=== PATIENT | female | born 2000 | race Caucasian/White ===

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

== ENCOUNTER 2018-08-07 07:35 | Inpatient (IN) ==
[2018-08-07] MEDS ORDERED: LACTATED RINGER'S 1,000 ML IV PRN (08:15)
[2018-08-07] MEDS ORDERED: OXYTOCIN 30 UNITS/500 ML BAG IV PRN (08:15)
[2018-08-07 08:41] LABS: Hematocrit (blood only) 33.7 % (37-47); Hemoglobin 11.1 g/dL (12.0-16.0); Mean Corpuscular Hgb Conc 32.9 g/dL (32-36); Mean Corpuscular Volume 90.1 fL (80-100); Mean Platelet Volume 9.9 fL (7.4-10.4); Platelet Count 251 K/uL (130-400); RDW Coefficient of Variation 16.4 % (11.5-14.5); RDW Standard Deviation 53.7 fL (36.4-46.3); Red Blood Count 3.74 M/uL (4.2-5.4); White Blood Count 12.37 K/uL (4.8-10.8)
[2018-08-07] MEDS ORDERED: DINOPROSTONE 10 MG INSERT PV ONE ×2 (08:48→21:50)
--- NOTE | 2018-08-07 09:02 | Obstetrical Progress Note ---
Date of Service August 07, 2018 Subjective Admit Note 18 F P1001 at 36.1 weeks admitted for induction of labor at 36.1 weeks for cholestasis of . had steroids for lung maturation. GBS is pending from office. FHT Cat 1. Cervix is fingertip/thick/- 3/vertex/posterior/intact. EFW is 6.5 lbs. Will plan for Cervidil for cervical ripening. Physical Exam Vital Signs (Past 24 Hours): Last Vital Signs Temp 36.6 C 08/07/18 07:45 Pulse 108 H 08/07/18 07:45 Resp 18 08/07/18 07:45 BP 118/65 08/07/18 07:45
[2018-08-07 09:14] LABS: Alanine Aminotransferase 71 U/L (12-78); Albumin Level 2.5 gm/dl (3.4-5.0); Aspartate Aminotransferase 37 U/L (15-37); BUN Creatinine Ratio 11.1 (10-20); Bilirubin Direct < 0.1 mg/dl (0-0.2); Blood Urea Nitrogen 7 mg/dl (7-18); Calcium 8.3 mg/dl (8.5-10.1); Carbon Dioxide 26 mmol/L (21-32); Chloride 108 mmol/L (98-107); Creatinine Clr Calc Pharmacy 160.4 ml/min; Est GFR (African American) 148.9; Est GFR (Non-African American) 128.5; Glucose 91 mg/dl (70-99); Potassium 3.7 mmol/L (3.5-5.1); Sodium 141 mmol/L (136-145)
[2018-08-07 09:16] LABS: Albumin Globulin Ratio 0.7 (0.9-2); Alkaline Phosphatase 123 U/L (45-117); Bilirubin,Total 0.2 mg/dl (0.2-1); Globulin 3.5 gm/dl (2.5-4.0)
--- NOTE | 2018-08-07 09:38 | Obstetrical Progress Note ---
Date of Service August 07, 2018 Physical Exam Vital Signs (Past 24 Hours): Last Vital Signs Temp 36.6 C 08/07/18 07:45 Pulse 108 H 08/07/18 07:45 Resp 18 08/07/18 07:45 BP 118/65 08/07/18 07:45 Physical Exam: Cervidil 10 mg placed vaginally. T Cat 1.
[2018-08-07] MEDS: ONDANSETRON INJ 2 MG/ML 2 ML VIAL IV PRN (19:47)
--- NOTE | 2018-08-07 21:57 | Obstetrical Progress Note ---
Date of Service August 07, 2018 Physical Exam Vital Signs (Past 24 Hours): Last Vital Signs Temp 36.7 C 08/07/18 19:29 Pulse 89 08/07/18 19:31 Resp 18 08/07/18 19:29 BP 132/67 08/07/18 19:31 Physical Exam: Cervidil removed Cervix /-3 FHT Cat 1 Will allow to eat and shower Plan for Cervidil
--- NOTE | 2018-08-07 23:50 | Obstetrical Progress Note ---
Date of Service August 07, 2018 Physical Exam Vital Signs (Past 24 Hours): Last Vital Signs Temp 36.7 C 08/07/18 22:39 Pulse 88 08/07/18 22:40 Resp 20 08/07/18 22:39 BP 115/53 L 08/07/18 22:40 Physical Exam: Cervidil 10 mg placed vaginally. T Cat 1.
[2018-08-08] MEDS: ONDANSETRON INJ 2 MG/ML 2 ML VIAL IV PRN ×3 (04:30→17:07)
[2018-08-08] MEDS: LACTATED RINGER'S 1,000 ML IV SCH ×2 (04:33→12:40)
[2018-08-08] MEDS: BUTORPHANOL TARTRATE 1 MG/ML VIAL IV PRN ×2 (04:43→07:42)
--- NOTE | 2018-08-08 09:11 | Progress Note ---
Date of Service August 08, 2018 Pt doing well Met Pt and family Induction for cholestasis Day 32 Cervidil #[address] Cervidil comes out at 11:00HRS Physical Exam Vital Signs (Past 24 Hours): Last Vital Signs Temp 36.8 C 08/08/18 07:08 Pulse 106 H 08/08/18 07:08 Resp 18 08/08/18 07:08 BP 119/67 08/08/18 07:08 Pulse Ox 94 08/08/18 05:44
[2018-08-08] MEDS ORDERED: BUPIVACAINE 0.25% 30 ML VIAL ONE (12:11)
[2018-08-08] MEDS ORDERED: ePHEDrine sulfate 50 MG/ML AMP ONE (12:12)
[2018-08-08] MEDS ORDERED: fentaNYL citrate 100 MCG/2 ML VIAL ONE (12:12)
[2018-08-08] MEDS ORDERED: fentaNYL 2MCG/ML ROPIV 1.25MG/ML 100 ML BAG EPI ONE (12:13)
[2018-08-08] MEDS ORDERED: OXYTOCIN 30 UNITS/500 ML BAG IV PRN ×2 (12:15→16:16)
[2018-08-08] MEDS ORDERED: LACTATED RINGER'S 1,000 ML IV PRN ×2 (12:15→13:05)
--- NOTE | 2018-08-08 12:15 | Progress Note ---
Date of Service August 08, 2018 Doing well FHR; CAT1 Ctx; 2-4mins VE; /-3 pt wishes to have epidural analgesia will start Pitocin after epidural Physical Exam Vital Signs (Past 24 Hours): Last Vital Signs Temp 36.8 C 08/08/18 11:51 Pulse 104 H 08/08/18 11:51 Resp 16 08/08/18 11:51 BP 112/79 08/08/18 11:51 Pulse Ox 94 08/08/18 05:44
[2018-08-08] MEDS ORDERED: ONDANSETRON INJ 2 MG/ML 2 ML VIAL IV PRN (13:05)
[2018-08-08] MEDS ORDERED: ePHEDrine sulfate 50 MG/ML AMP IV PRN (13:05)
[2018-08-08] MEDS ORDERED: PROMETHAZINE HCL 6.25 MG in SODIUM CHLORIDE 0.9% 50 ML IV PRN (13:05)
[2018-08-08] MEDS ORDERED: NALOXONE HCL 0.4 MG/1 ML VIAL/CARP IV PRN (13:05)
[2018-08-08] MEDS ORDERED: DiphenhydrAMINE HCL 50 MG/ML VIAL IV PRN (13:05)
[2018-08-08] MEDS ORDERED: NALOXONE HCL 1 MG in SODIUM CHLORIDE 0.9% 1000ML 1,000 ML IV PRN (13:05)
[2018-08-08] MEDS ORDERED: fentaNYL 2MCG/ML ROPIV 1.25MG/ML 100 ML BAG EPI PRN (13:05)
[2018-08-08] MEDS ORDERED: NALBUPHINE HCL INJ 10 MG/ML AMP IV PRN (13:05)
--- NOTE | 2018-08-08 13:05 | Anesthesiology Consultation ---
Date of Service August 08, 2018 @ 36.1 Cholestasis of Assessment & Plan (1) Encounter for pre-operative examination: Chart Review Chart Review: Acceptable Risk for Surgery and Patient NOT seen in Pre Admission Testing Consults Requested none ASA ASA2 Proposed Anesthesia Anesthesia Type: Labor Epidural Risk / Benefits Reviewed With: PT / POA / Parent / Guardian, Accepts Plan and Informed Consent Obtained NPO Date Last Intake of Fluids: 08/08/18 Time Last Intake of Fluids: 08:00 Date Last Intake of Solids: 08/07/18 Time Last Intake of Solids: 20:00 History Height/Weight Height: 5 ft 5 in Weight: 95.708 kg Allergies Allergy/AdvReac Type Severity Reaction Status Date / Time No Known Allergies Allergy Verified 08/07/18 07:49 Medications Home Medications Medication Instructions Recorded Confirmed Last Taken Lactobacillus acidophilus 1 cap PO DAILY 07/23/18 08/07/18 08/06/18 06:00 [Probiotic] diphenhydramine HCl [Benadryl] 50 mg PO HS PRN 07/23/18 08/07/18 08/06/18 15:00 ferrous sulfate [Iron (ferrous 325 mg PO DAILY 07/23/18 08/07/18 08/06/18 06:00 sulfate)] pantoprazole [Protonix] 40 mg PO DAILY 07/23/18 08/07/18 08/06/18 06:00 vit-iron fum-folic ac 1 tab PO DAILY 07/23/18 08/07/18 08/07/18 06:00 [ Vitamin] ursodiol [Actigall] 300 mg PO BID 07/23/18 08/07/18 08/07/18 06:00 ondansetron HCl [Zofran] 4 mg PO QID PRN 08/07/18 08/07/18 08/07/18 06:00 Active Medications Generic Name Dose Route Start Last Admin Trade Name Freq PRN Reason Stop Dose Admin Butorphanol Tartrate 1 mg 08/07/18 23:50 08/08/18 07:42 Stadol IV 09/06/18 23:49 1 mg Q2HWA PRN Administration Pain Lactated Ringer's 1,000 mls @ 125 mls/hr 08/07/18 08:15 08/08/18 12:40 Lr IV 08/09/18 08:14 125 mls/hr .Q8H JULIO Administration Ondansetron HCl 4 mg 08/07/18 19:40 08/08/18 08:29 Zofran IV 09/06/18 19:39 4 mg Q4H PRN Administration Nausea Past Medical History Medical History 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
[2018-08-08] MEDS ORDERED: METHYLERGONOVINE MALEATE 0.2 MG/ML AMP ONE (16:04)
[2018-08-08] MEDS ORDERED: METHYLERGONOVINE MALEATE 0.2 MG/ML AMP IM ONE (16:16)
[2018-08-08] MEDS ORDERED: miSOPROStol 200 MCG TAB PR ONE (16:16)
[2018-08-08] MEDS ORDERED: HYDROCORTISONE ACETATE 25 MG SUPP PR PRN (16:16)
[2018-08-08] MEDS ORDERED: SUPERCREAM 0.870% 15 GM JAR EXT PRN (16:16)
[2018-08-08] MEDS ORDERED: ACETAMINOPHEN 325 MG TAB PO PRN (16:16)
[2018-08-08] MEDS ORDERED: DIPHTHERIA/TETANUS/PERTUSSIS 0.5 ML SYR/VIAL IM ONE (16:16)
[2018-08-08] MEDS ORDERED: BENZOCAINE 20% AER SPR 82.5 GM CAN EXT PRN (16:16)
[2018-08-08] MEDS ORDERED: BISACODYL 10 MG SUPP PR PRN (16:16)
--- NOTE | 2018-08-08 17:43 | Anesthesia Procedure Note ---
Date of Service August 08, 2018 Anesthesia Post Epidural Note Vital Signs Vital Signs: Temp Pulse Resp BP Pulse Ox 36.8 C 86 20 134/77 100 08/08/18 11:51 08/08/18 17:35 08/08/18 15:00 08/08/18 17:35 08/08/18 15:52 Pain Intensity Bilateral Abdomen: Pain Intensity: 0 Notes Mental Status: alert / awake / arousable and participated in evaluation Nausea / Vomiting: adequately controlled Pain: adequately controlled Airway Patency, RR, SpO2: stable & adequate BP & HR: stable & adequate Hydration State: stable & adequate Neuraxial Anesthesia: was administered and sensory block is resolving Anesthetic Complications: no major complications apparent and Pt Satisfied with anesthetic care Epidural: Removed without complications and With tip intact
[2018-08-08] MEDS: IBUPROFEN 600 MG TAB PO PRN ×2 (20:13→23:49)
[2018-08-08] MEDS: DOCUSATE SODIUM 100 MG CAP PO SCH (20:14)
[2018-08-08] MEDS ORDERED: OXYTOCIN 20 UNITS in LACTATED RINGER'S 1,000 ML IV SCH (20:45)
[2018-08-08] MEDS ORDERED: miSOPROStol 200 MCG TAB PR SCH (21:30)
[2018-08-09] MEDS: IBUPROFEN 600 MG TAB PO PRN ×5 (05:21→21:20)
[2018-08-09 06:35] LABS: Hematocrit (blood only) 38.8 % (37-47); Hemoglobin 12.9 g/dL (12.0-16.0); Mean Corpuscular Hgb Conc 33.2 g/dL (32-36); Mean Corpuscular Volume 88.8 fL (80-100); Mean Platelet Volume 10.1 fL (7.4-10.4); Platelet Count 268 K/uL (130-400); RDW Coefficient of Variation 15.9 % (11.5-14.5); RDW Standard Deviation 51.8 fL (36.4-46.3); Red Blood Count 4.37 M/uL (4.2-5.4); White Blood Count 13.68 K/uL (4.8-10.8)
--- NOTE | 2018-08-09 08:38 | Obstetrical Progress Note ---
Date of Service August 09, 2018 Assessment & Plan (1) normal course: PPD #1 pt doing well no complaints anticipate disch tomorrow Subjective Ambulation: ambulating normally Voiding: no voiding problems Passing Gas:: Yes Diet Tolerance:: regular diet Lochia:: Small Feeding Type:: breast feeding Review of Systems All systems reviewed & are unremarkable except as noted in HPI & below Physical Exam Vital Signs (Past 24 Hours) Last Vital Signs Temp 36.5 C 08/09/18 03:50 Pulse 56 L 08/09/18 03:50 Resp 18 08/09/18 03:50 BP 107/70 08/09/18 03:50 Pulse Ox 100 08/08/18 15:52 Constitutional WD/WN, vitals as above well developed and well nourished Eyes PERRL, conjunctivae normal, anicteric sclerae Neck trachea midline, no thyromegaly Respiratory normal respiratory effort, lungs clear to auscultation Auscultation: no crackles, no rales and no wheezes Cardiovascular RRR, no murmur, no edema Gastrointestinal (Abdomen) normal bowel sounds, soft, nontender, no hepatosplenomegaly Uterus is below umbilicus Musculoskeletal no cyanosis or clubbing, extremities motor strength 5/5 Skin no rashes, warm and dry Neurologic patellar DTR's 2+ bilat, sensation intact Psychiatric A+Ox3, euthymic affect Genitourinary normal external appearance
[2018-08-09] MEDS: DOCUSATE SODIUM 100 MG CAP PO SCH ×2 (09:02→20:00)
[2018-08-09] MEDS: PRENATAL VITAMIN 1 TAB PO SCH (09:02)
[2018-08-09] MEDS: FERROUS SULFATE 325 MG TAB PO SCH (09:02)
[2018-08-09] MEDS: OXYCODONE/ACETAMINOPHEN 5mg/325mg TAB PO PRN ×2 (12:59→21:20)
[2018-08-09] MEDS ORDERED: BISACODYL 5 MG TABEC PO SCH (20:00)
[2018-08-10 06:35] LABS: Hematocrit (blood only) 37.1 % (37-47); Hemoglobin 12.1 g/dL (12.0-16.0)
[2018-08-10] MEDS: DOCUSATE SODIUM 100 MG CAP PO SCH (08:11)
[2018-08-10] MEDS: IBUPROFEN 600 MG TAB PO PRN (08:11)
[2018-08-10] MEDS: FERROUS SULFATE 325 MG TAB PO SCH (08:11)
[2018-08-10] MEDS: PRENATAL VITAMIN 1 TAB PO SCH (08:11)
--- NOTE | 2018-08-10 10:58 | Obstetrical Progress Note ---
Date of Service August 10, 2018 Subjective doing fine ambulating and tana diet well Physical Exam Vital Signs (Past 24 Hours): Last Vital Signs Temp 36.8 C 08/10/18 10:22 Pulse 85 08/10/18 10:22 Resp 18 08/10/18 10:22 BP 99/67 L 08/10/18 10:22 Pulse Ox 97 08/10/18 10:22 Constitutional: well developed and comfortable abdomen soft fundus firm no edema neg Davin's for d/c home Results & Data Laboratory Results 08/07/18 08/07/18 08/09/18 08:27 08:27 06:00 WBC 12.37 H 13.68 H RBC 3.74 L 4.37 Hgb 11.1 L 12.9 Hct 33.7 L 38.8 MCV 90.1 88.8 MCH 29.7 29.5 MCHC 32.9 33.2 RDW Std Deviation 53.7 H 51.8 H RDW Coeff of Kory 16.4 H 15.9 H Plt Count 251 268 MPV 9.9 10.1 Sodium 141 Potassium 3.7 Chloride 108 H Carbon Dioxide 26 Anion Gap 7.0 BUN 7 Creatinine 0.64 Est Cr Clr Drug Dosing 160.4 Est GFR ( Amer) 148.9 Est GFR (Non-Af Amer) 128.5 BUN/Creatinine Ratio 11.1 Glucose 91 Calcium 8.3 L Total Bilirubin 0.2 Direct Bilirubin < 0.1 AST 37 ALT 71 Alkaline Phosphatase 123 H Total Protein 6.0 L Albumin 2.5 L Globulin 3.5 Albumin/Globulin Ratio 0.7 L 08/10/18 06:10 WBC RBC Hgb 12.1 Hct 37.1 MCV MCH MCHC RDW Std Deviation RDW Coeff of Kory Plt Count MPV Sodium Potassium Chloride Carbon Dioxide Anion Gap BUN Creatinine Est Cr Clr Drug Dosing Est GFR ( Amer) Est GFR (Non-Af Amer) BUN/Creatinine Ratio Glucose Calcium Total Bilirubin Direct Bilirubin AST ALT Alkaline Phosphatase Total Protein Albumin Globulin Albumin/Globulin Ratio
--- NOTE | 2018-08-11 07:56 | Delivery Summary ---
DATE OF OPERATION: 08/08/2018 The patient delivered a live female in right occiput anterior presentation. There was a loose nuchal cord, which was easily reduced. was delivered. There was body cord noted as well. Infant was placed on mother's abdomen. Cord was clamped and cut after 1 minute. 's Apgars are 8 and 9. Cord blood was obtained. Placenta was spontaneously delivered. Inspection of the placenta shows a 3-vessel cord with normal grossly-looking placenta. Estimated blood loss was 600 mL Inspection of the perineum showed a 1-inch periurethral tear, which was repaired with 3-0 Vicryl. Rest of the perineum is intact. Rectal exam post repair showed good sphincter tone. There was good hemostasis. All instruments were removed from the vagina including retractors, sponges and accounted for x2. The patient was straight catheterized and 100 mL of clear urine was obtained. I attest to the content of the Intraoperative Record and any orders documented therein. Any exception s are noted below.
== END 2018-08-10 14:15 | disposition home or self-care (01) | DRG 807 ==
LOC: 4S1 07:35 → 4S2 08-08 19:57